=== PATIENT | male | born 1960 | race Caucasian/White ===

== ENCOUNTER 2018-06-19 19:44 | Emergency (ER) | payer BC ==
[~2018-06-19 19:44] MED LIST: ISOVUE-370 76%-LOCM 1 ML ONE
[2018-06-19 20:07] LABS: Bilirubin Negative (Negative); Blood, Urine Moderate (Negative); Clarity CLEAR (Clear); Glucose, Urine (Dipstick) Negative (Negative); Leukocyte Negative (Negative); Nitrite Negative (Negative); Protein, Urine (Dipstick) Negative (Neg-Trace); Urobilinogen 0.2 mg/dL (0.2-1.0)
[2018-06-19 20:10] LABS: Bacteria/HPF None Seen HPF (None Seen); Hyaline Casts/LPF 0-3 HYALINE CAST LPF (0-3 Hyaline); RBC/HPF 21-50 HPF (0-3); Squamous Epithelial None Seen HPF (0-3); WBC/HPF 0-3 HPF (0-3)
[2018-06-19 20:12] LABS: #Basophils 0.1 thou/uL (0.0-0.2); #Eosinphils 0.2 thou/uL (0.0-0.7); #Lymphocytes 1.9 thou/uL (1.20-3.40); #Monocytes 0.6 thou/uL (0.11-0.59); #Neutrophils 3.9 thou/uL (1.40-6.50); %Basophils 1.4 % (0.0-1.0); %Eosinophils 3.2 % (0.0-10.0); %Lymphocytes 28.5 % (21.0-51.0); %Monocytes 8.4 % (0.0-10.0); %Neutrophils 58.5 % (42.0-75.0); Hemoglobin 13.8 g/dL (14.0-18.0); Mean Corpuscular HGB CONC 34.7 g/dL (32.0-36.0); Mean Corpuscular Hemoglobin 31.4 pg (27.0-31.0); Mean Corpuscular Volume 90.6 fL (78.0-98.0); Mean Platelet Volume 6.6 fL (7.4-10.4); Platelet Count 255 thou/uL (130-400); Red Blood Cell (RBC) Count 4.39 mill/uL (4.70-6.10); White Blood Cell (WBC) Count 6.7 thou/uL (4.8-10.8)
[2018-06-19] MEDS ORDERED: Ketorolac Tromethamine 30 MG/ML VIAL ONE (20:28)
[2018-06-19] MEDS ORDERED: Ondansetron PF 4 MG/2 ML Vial ONE (20:28)
[2018-06-19 20:36] LABS: ALT (SGPT) 18 U/L (8-55); AST (SGOT) 15 U/L (5-34); Albumin 4.1 g/dL (3.5-5.0); Alkaline Phosphatase 60 U/L (40-150); Anion Gap 12 mmol/L (10-20); BUN (Urea Nitrogen) 16 mg/dL (8.4-25.7); Bilirubin, Total 0.7 mg/dL (0.2-1.2); Calc. Creatinine Clearance 0 mL/min (70-130); Calcium 9.4 mg/dL (7.8-10.44); Carbon Dioxide 25 mmol/L (22-29); Chloride 106 mmol/L (98-107); Estimated GFR-MDRD 62; Globulin 2.7 g/dL (2.4-3.5); Glucose 112 mg/dL (70-105); Protein, Total 6.8 g/dL (6.0-8.3); Sodium 139 mmol/L (136-145)
--- NOTE | 2018-06-19 22:53 | CT ---
CONTRAST ENHANCED CT IMAGES OF THE ABDOMEN AND PELVIS: History: 58-year-old with history of right sided flank pain. Technique: Contrast enhanced CT images of the abdomen and pelvis obtained. FINDINGS: The lung bases are unremarkable. No evidence of free intraperitoneal air is seen. The liver and spleen are unremarkable. The pancreas is unremarkable. There is a 1.2 cm gallstone in t he gallbladder lumen. Adrenal glands unremarkable. The left kidney contains no evidence of masses or lesion. No evidence of left sided hydronephrosis is seen. Moderate right sided hydroureteronephrosis is seen. There is a 2 mm distal right ureteral calculus at the right ureterovesicular junction resulting in surrounding fat stranding in the right kidney. No dilated loops of bowel seen. The colon demonstrates no significant abnormalities. IMPRESSION: 1. Cholelithiasis. 2. Nephrolithiasis with obstructing distal right ureteral calculus and proximal right sided hydrouret eronephrosis. POS: ALY
== END 2018-06-19 22:12 | disposition home or self-care (01) ==
LOC: ERS 19:44
DX: N13.2 Hydronephrosis with renal and ureteral calculous obstruction (principal); E78.5 Hyperlipidemia, unspecified; I25.2 Old myocardial infarction; Z79.891 Long term (current) use of opiate analgesic; Z79.899 Other long term (current) drug therapy
CPT/HCPCS: 36415; 74177; 80053; 81003; 81015; 83690; 85025; 96361; 96374; 96375; J1885; J2405; Q9966

== ENCOUNTER 2018-11-15 14:00 | Outpatient (CLI) | payer BC ==
--- NOTE | 2018-11-15 14:39 | ULT ---
EXAM: Left lower extremity venous ultrasound HISTORY: Left lower extremity pain and edema COMPARISON: None TECHNIQUE: Multiplanar grayscale and color Doppler images were obtained in a left lower extremity abhi ous ultrasound. Spectral analysis of the Doppler waveforms were performed. FINDINGS: The common femoral vein, profunda femoral vein, superficial femoral vein, and popliteal vei n are normal in appearance without visible thrombus. These vessels demonstrate normal compression, flow, and augmentation. The posterior tibial vein and greater saphenous vein are patent without evidence of thrombus. IMPRESSION: No evidence of DVT.
== END 2018-11-15 14:01 | disposition home or self-care (01) ==
LOC: BICULT 14:00
PROVIDERS: ATTEND Family Medicine
DX: M79.89 Other specified soft tissue disorders (principal)

== ENCOUNTER 2019-04-18 10:09 | Observation (INO) | payer BC, SELFPAY ==
[2019-04-18 10:58] LABS: #Eosinphils 0.2 thou/uL (0.0-0.7); #Lymphocytes 1.4 thou/uL (1.20-3.40); #Monocytes 0.7 thou/uL (0.11-0.59); #Neutrophils 5.6 thou/uL (1.40-6.50); %Basophils 0.4 % (0.0-1.0); %Lymphocytes 17.6 % (21.0-51.0); %Neutrophils 71.1 % (42.0-75.0); Hemoglobin 14.6 g/dL (14.0-18.0); Mean Corpuscular HGB CONC 33.8 g/dL (32.0-36.0); Mean Corpuscular Hemoglobin 30.7 pg (27.0-31.0); Mean Platelet Volume 6.9 fL (7.4-10.4); Platelet Count 267 thou/uL (130-400); RBC Distribution Width 11.9 % (11.5-14.5); Red Blood Cell (RBC) Count 4.74 mill/uL (4.70-6.10); White Blood Cell (WBC) Count 7.9 thou/uL (4.8-10.8)
[2019-04-18 11:05] LABS: ALT (SGPT) 20 U/L (8-55); AST (SGOT) 12 U/L (5-34); Albumin 4.3 g/dL (3.5-5.0); Alkaline Phosphatase 52 U/L (40-110); Anion Gap 13 mmol/L (10-20); BUN (Urea Nitrogen) 19 mg/dL (8.4-25.7); Bilirubin, Total 1.3 mg/dL (0.2-1.2); CK (CPK) 611 U/L (30-200); Calc. Creatinine Clearance 0 mL/min (70-130); Calcium 9.3 mg/dL (7.8-10.44); Carbon Dioxide 26 mmol/L (22-29); Chloride 107 mmol/L (98-107); Estimated GFR-MDRD 49; Globulin 2.8 g/dL (2.4-3.5); Glucose 134 mg/dL (70-105); Potassium 4.1 mmol/L (3.5-5.1); Protein, Total 7.1 g/dL (6.0-8.3); Sodium 142 mmol/L (136-145)
--- NOTE | 2019-04-18 11:28 | RAD ---
PORTABLE CHEST 1 VIEW: Date: 04/18/2019 Time: 1106 hours HISTORY: Chest pain, palpitations, dizziness. FINDINGS: Comparison made with exam of 10/08/2012. The heart size is normal. The lungs are expanded without lobar consolidation, pneumothoraces, or pleu ral effusions. IMPRESSION: No radiographic evidence of acute cardiopulmonary process. POS: TPC
[2019-04-18] MEDS ORDERED: Enoxaparin Sodium 60 MG/0.6 ML SYRINGE ONE (12:21)
[2019-04-18 13:13] LABS: PTT 27.1 SEC (22.9-36.1)
[2019-04-18 14:33] LABS: Troponin I Less than 0.010 ng/mL (< 0.028)
[2019-04-18] MEDS ORDERED: Ondansetron ODT 4 MG TAB PO PRN (14:34)
[2019-04-18] MEDS ORDERED: Acetaminophen 500 MG TAB PO PRN (14:34)
[2019-04-18] MEDS ORDERED: Ondansetron PF 4 MG/2 ML Vial IVP PRN (14:34)
[2019-04-18 14:50] VITALS: BMI 31.8
[2019-04-18] MEDS: Sodium Chloride 0.9% 1,000 ML IV SCH (15:41)
[2019-04-18 18:18] LABS: Troponin I 0.021 ng/mL (< 0.028)
--- NOTE | 2019-04-18 18:36 | CON ---
DATE OF CONSULTATION: HISTORY OF PRESENT ILLNESS: Pelon Abraham is a 58-year-old with a history of coronary artery disease, who presented with increasing palpitations. The patient was seen initially in 2013 with a myocardial infarction. The patient underwent a cardiac catheterization and he was found to have a 20% LAD lesion with diffuse distal disease. The left circumflex artery, and had a 60% proximal and 70% mid stenosis. There was diffuse disease in the left circumflex. The right coronary had a 40% stenosis. The patient presents with increasing palpitations. He denies having any chest discomfort. He did feel mildly lightheaded. PAST MEDICAL HISTORY: 1. CAD. 2. Hypertension. 3. Dyslipidemia. PAST SURGICAL HISTORY: None. SOCIAL HISTORY: Former smoker. FAMILY HISTORY: Positive family history of heart disease. ALLERGIES: PENICILLIN. REVIEW OF SYSTEMS: Ten-point system otherwise unremarkable. PHYSICAL EXAMINATION: GENERAL: Well-developed gentleman, in no acute distress. VITAL SIGNS: Blood pressure 105/64. NECK: Showed no jugular venous distention. LUNGS: Clear to auscultation. HEART: Irregular rate and rhythm with a normal S1 and S2. No murmurs. ABDOMEN: Nondistended. EXTREMITIES: Showed no edema. LABORATORY DATA: Sodium 142, potassium 4.1, chloride 107, bicarbonate 26, BUN 19, creatinine 1.47, glucose was 134. Troponin less than 0.01. His hemoglobin 7.9, hematocrit 14.6, hematocrit 43.1, his platelets are 267. INR was 1.0. EKG revealed atrial fibrillation with controlled ventricular response. IMPRESSION: 1. New onset atrial fibrillation. 2. History of myocardial infarction. 3. Diffuse three-vessel coronary artery disease. 4. Hypertension. 5. Dyslipidemia. This gentleman presents with new onset atrial fibrillation. From a cardiac standpoint, he is very symptomatic. We would recommend electrical cardioversion. We will proceed with SHIRA cardioversion. At this time, would discontinue his lisinopril and hold his Norvasc. We will switch to a baby aspirin and start Eliquis. We will continue Coreg. Job ID: [id number] [facility]
--- NOTE | 2019-04-18 19:55 | HP ---
PRIMARY CARE PROVIDER: Dr. Darren Dykes. CHIEF COMPLAINT: Lightheadedness, palpitations, and fatigue. HISTORY OF PRESENT ILLNESS: This is a 58-year-old male, who presented to [facility] Emergency Department complaining of general fatigue, palpitations, dizziness, and nausea in the last 24 to 48 hours. The patient states he has noticed his blood pressure being low, at which point his primary care provider decreased his outpatient blood pressure regimen in attempts to ameliorate the situation. The patient states his dizziness had improved with decreasing the amount of blood pressure medication he was taking; however, has noticed general fatigue and low energy level. The patient states the symptoms have been progressive over the last several weeks after losing his job approximately 1 month prior. The patient states he has noticed some palpitations intermittently over the last 24 to 48 hours, becoming progressive, prompting him to seek medical attention. The patient states recent cold symptoms, taking [id number] Zicam for relief. The patient denied any other new medications and states the only adjustment was decreasing his blood pressure medication. The patient denied any travel history, trauma, injury, or family members with similar symptoms. The patient states he has been fairly sedentary since the loss of his job 4 weeks prior with some increased weight gain. The patient denied any appetite changes, hematemesis, melena, or dysuria. The patient denied any pamela chest pain, arm discomfort, or jaw pain. In the emergency room, the patient underwent general evaluation with telemetry monitoring showing atrial fibrillation with slow rate. The patient was also noted with hypotension with initial blood pressure of 76/52. The patient received intravenous normal saline x1 liter as well as subcutaneous Lovenox 1 mg/kg x1. PAST MEDICAL HISTORY: 1. Status post myocardial infarction, on chronic Plavix. 2. Hyperlipidemia. 3. Hypertension with subsequent hypotension. PAST SURGICAL HISTORY: Status post cardiac catheterization showing diffuse 3-vessel coronary artery disease. CURRENT MEDICATIONS: 1. Lipitor 80 mg p.o. at bedtime. 2. Lisinopril 20 mg p.o. b.i.d. 3. Plavix 75 mg p.o. daily. 4. Carvedilol 6.25 mg p.o. daily. 5. Amlodipine 10 mg p.o. daily. ALLERGIES: TO PENICILLIN. FAMILY HISTORY: Positive for hypertension and coronary artery disease. SOCIAL HISTORY: Currently, unemployed. No alcohol, tobacco, or illicit drug use. Remote tobacco use. Functional of all activities of daily living. REVIEW OF SYSTEMS: CONSTITUTIONAL: Negative for weight loss or gain, ability to conduct usual activities. SKIN: Negative for rash, itching. EYES: Negative for double vision, pain. ENT/MOUTH: Negative for nose bleeding, neck stiffness, pain, tenderness. CARDIOVASCULAR: Negative for palpitations, dyspnea on exertion, orthopnea. RESPIRATORY: Negative for shortness of breath, wheezing, cough, hemoptysis, fever or night sweats. GASTROINTESTINAL: Negative for poor appetite, abdominal pain, heartburn, nausea, vomiting, constipation, or diarrhea. GENITOURINARY: Negative for urgency, frequency, dysuria, nocturia. MUSCULOSKELETAL: Negative for pain, swelling. NEUROLOGIC/PSYCHIATRIC: Negative for anxiety, depression. ALLERGY/IMMUNOLOGIC: Negative for skin rash, bleeding tendency. Otherwise negative except as stated per HPI. PHYSICAL EXAMINATION: VITAL SIGNS: On admission; blood pressure 76/52, pulse 78, respiratory rate 18, temperature 97.9 degrees Fahrenheit, O2 saturation 100% on room air. GENERAL APPEARANCE: This is a 58-year-old male, alert and oriented x3, pleasant, responsive, in no acute distress. HEENT: Pupils are equal, round, reactive to light and accommodation. Extraocular muscles are intact. No scleral icterus. No conjunctival injection. Nares patent. OP is clear. Teeth in fair repair. NECK: Supple. No cervical adenopathy. No thyromegaly. No carotid bruits. No JVD appreciated. Cervical spine with full active and passive range of motion. No meningeal signs noted. CHEST: Lungs are clear to auscultation bilaterally. CARDIOVASCULAR: S1, S2 with irregular rate and rhythm. No murmur appreciated. ABDOMEN: Obese, soft, nontender, and nondistended. Bowel sounds are positive in all 4 quadrants. There is no hepatosplenomegaly. No abdominal bruits. No rebound or guarding appreciated. EXTREMITIES: Warm and dry with fair turgor. No clubbing, cyanosis, or asymmetric edema appreciated. Pulses palpable distally at the dorsalis pedis, posterior tibial, and popliteal arteries bilaterally. Capillary refill less than 2 seconds. NEUROLOGIC: Cranial nerves 2 through 12 are grossly intact. No focal or lateralizing signs appreciated. PERTINENT LABORATORY AND X-RAY FINDINGS: Sodium 142, potassium 4.1, chloride 107, CO2 of 26, BUN 19, creatinine 1.47, estimated GFR 49, glucose 134, calcium 9.3, total bilirubin 1.3. Creatine kinase 611. Troponin-I negative x1. CBC within normal limits. Portable chest x-ray dated 04/18/2019 showed no acute cardiopulmonary process. EKG dated 04/18/2019 by my interpretation shows atrial fibrillation, heart rates in the 80s. Normal R-wave progression noted in the precordial leads. Normal axis. No acute ST-T wave changes noted. ASSESSMENT AND PLAN: 1. Hypotension. Suspect iatrogenic. We will continue intravenous normal saline at 125 mL/hr. Hold all home blood pressure medications. Serial blood pressure monitoring. Check 2D transthoracic echocardiogram for ejection fraction and valvular function. 2. Atrial fibrillation with controlled ventricular response. Appears new onset; however, time course is unclear. Obtain 2D transthoracic echocardiogram. Check magnesium and TSH level. Continue Lovenox 1 mg/kg subcutaneously q.12 hours. Consult Cardiology Service for further recommendations. 3. Acute kidney injury. Suspect iatrogenic in conjunction with volume depletion. We will continue IV fluids as outlined previously. Hold lisinopril. Repeat creatinine in the a.m. 4. Coronary artery disease, chronic and stable. Continue Plavix 75 mg daily. No evidence of acute coronary syndrome. 5. Prophylaxis. SCDs while in bed. Pepcid 20 mg p.o. b.i.d. CODE STATUS: Full. Surrogate medical decision maker is the patient's spouse. Job ID: [id number]
[2019-04-18] MEDS ORDERED: Atorvastatin Calcium 40 MG TAB PO SCH (21:00)
[2019-04-18] MEDS ORDERED: Enoxaparin Sodium 120 MG/0.8 ML SYRINGE SC SCH (21:00)
[2019-04-18] MEDS: Famotidine 20 MG TAB PO SCH (22:00)
[2019-04-18] MEDS: Apixaban 5 MG TAB PO SCH (22:17)
[2019-04-19] MEDS: Sodium Chloride 0.9% 1,000 ML IV SCH ×2 (02:30→14:53)
[2019-04-19 07:28] LABS: Hemoglobin 12.5 g/dL (14.0-18.0); Mean Corpuscular HGB CONC 33.6 g/dL (32.0-36.0); Mean Corpuscular Hemoglobin 31.3 pg (27.0-31.0); Mean Platelet Volume 7.1 fL (7.4-10.4); Platelet Count 227 thou/uL (130-400); RBC Distribution Width 11.9 % (11.5-14.5); Red Blood Cell (RBC) Count 4.01 mill/uL (4.70-6.10); White Blood Cell (WBC) Count 8.7 thou/uL (4.8-10.8)
[2019-04-19 07:46] LABS: ALT (SGPT) 15 U/L (8-55); AST (SGOT) 11 U/L (5-34); Albumin 3.6 g/dL (3.5-5.0); Alkaline Phosphatase 44 U/L (40-110); Anion Gap 11 mmol/L (10-20); BUN (Urea Nitrogen) 15 mg/dL (8.4-25.7); Bilirubin, Total 0.9 mg/dL (0.2-1.2); Calc. Creatinine Clearance 116 mL/min (70-130); Calcium 8.7 mg/dL (7.8-10.44); Carbon Dioxide 26 mmol/L (22-29); Chloride 106 mmol/L (98-107); Estimated GFR-MDRD 67; Globulin 2.4 g/dL (2.4-3.5); Glucose 92 mg/dL (70-105); Magnesium 1.9 mg/dL (1.6-2.6); Potassium 4.3 mmol/L (3.5-5.1); Sodium 139 mmol/L (136-145)
[2019-04-19] MEDS ORDERED: Carvedilol 6.25 MG TAB PO SCH ×2 (08:00→15:00)
[2019-04-19 08:04] VITALS: TEMP 98
[2019-04-19] MEDS: Famotidine 20 MG TAB PO SCH (08:12)
[2019-04-19 08:19] LABS: Band 2 % (5-11); Lymphocytes 21 % (21-51); MDiff Complete? YES; Monocytes 8 % (0-10); Neutrophil 68 % (42-75); Platelet Morphology Comment Appears Adequate; RBC Morphology Normal
[2019-04-19] MEDS ORDERED: Aspirin 81 mg Enteric Coated Tablet PO SCH (09:00)
[2019-04-19] MEDS ORDERED: Clopidogrel Bisulfate 75 MG TAB PO SCH (09:00)
[2019-04-19] MEDS ORDERED: PROPOFOL 20 ML ONE (10:19)
[2019-04-19 11:37] VITALS: BP 112/66
[2019-04-19] MEDS: Apixaban 5 MG TAB PO SCH (13:29)
--- NOTE | 2019-04-19 13:49 | OP ---
DATE OF PROCEDURE: 04/19/2019 STUDY PERFORMED: Transesophageal echocardiogram. INDICATION: A 58-year-old gentleman with paroxysmal atrial fibrillation. DESCRIPTION OF PROCEDURE: The patient was taken to the PACU. The patient was sedated by Anesthesiology. A transesophageal probe was placed into the distal esophagus and stomach. Echocardiographic images were obtained. The transesophageal probe was removed. FINDINGS: 1. Normal left ventricular systolic function. 2. Left atrial enlargement. 3. Normal mitral and aortic valve. 4. Obcb-ca-[id number] mitral regurgitation. 5. Mild tricuspid regurgitation. 6. No thrombus in the left atrial or left atrial appendage. 7. Atherosclerotic debris in the descending aorta. IMPRESSION: No formed thrombus in the left atrial or left atrial appendage. Job ID: [id number]
--- NOTE | 2019-04-19 13:49 | OP ---
DATE OF PROCEDURE: 04/19/2019 STUDY PERFORMED: Electrocardioversion. INDICATION: Paroxysmal atrial fibrillation. DESCRIPTION OF PROCEDURE: The patient was taken to the PACU. The patient sedated by Anesthesiology. The patient was shocked with 200 joules of synchronized electricity on two occasions. The patient converted to normal sinus rhythm. IMPRESSION: Successful electrocardioversion. Job ID: [id number]
--- NOTE | 2019-04-19 16:36 | DIS ---
DATE OF ADMISSION: 04/18/2019 DATE OF DISCHARGE: 04/19/2019 DISCHARGE DIAGNOSES: 1. Atrial fibrillation with variable rate, status post cardioversion with return to sinus mechanism. 2. Hypotension, iatrogenic, improved. 3. Acute kidney injury, iatrogenic, resolving. 4. Coronary artery disease, chronic and stable. CONSULTATIONS: Dr. Nicolás Tovar with Cardiology Service. PERTINENT LABORATORY AND X-RAY FINDINGS: Creatinine ranged between 1.13 to 1.47. Estimated GFR ranged between 49 to 67. Magnesium level 1.9. Troponin I negative x3. TSH 1.50. CBC showed a hemoglobin ranging between 12.5 to 14.6. Stool Hemoccult dated 04/18/2019, negative x1. Portable chest x-ray dated 04/18/2019, showed no hemodynamically significant stenosis. 2D transthoracic echocardiogram dated 04/18/2019 showed ejection fraction of 50% to 55%. Moderate mitral regurgitation noted. HOSPITAL COURSE: The patient was observed on the telemetry unit after initially presenting with lightheadedness, palpitations, and fatigue. The patient was noted with atrial fibrillation with variable rate as well as associated hypotension. The patient was placed on IV fluids with overall improvement in systolic blood pressures. The patient underwent evaluation by the Cardiology Service with recommendations to proceed to electrical cardioversion for atrial fibrillation. The patient received Lovenox 1 mg/kg subcutaneously q.12 hours and underwent the electrical cardioversion on 04/19/2019 with return to sinus mechanism. The patient transitioned to Eliquis 5 mg b.i.d. The patient was also increased on carvedilol to 6.25 mg t.i.d. Overall, blood pressure trend improved with supportive management and conversion to sinus mechanism. I have examined the patient at the time of discharge and discussed followup instructions. The patient verbalized understanding and in agreement and ready for discharge on 04/19/2019. DISCHARGE MEDICATIONS: 1. Lipitor 80 mg p.o. daily. 2. Norvasc 5 mg p.o. daily. 3. Eliquis 5 mg p.o. b.i.d. 4. Enteric-coated aspirin 81 mg p.o. daily. 5. Coreg 6.25 mg p.o. t.i.d. 6. Lisinopril 5 mg p.o. daily. FOLLOWUP: The patient may follow up with his primary care provider, Dr. Darren Dykes. The patient may follow up with Dr. Nicolás Tovar on 05/05/2019. CONDITION ON DISCHARGE: Stable. ACTIVITY: Ad-jeremiah. DIET: Heart healthy. CODE STATUS: Full. DISPOSITION: To home on 04/19/2019. Job ID: [id number]
--- NOTE | 2019-04-22 14:24 | EKG ---
Test Reason : Blood Pressure : / mmHG Vent. Rate : 089 BPM Atrial Rate : 227 BPM P-R Int : 000 ms QRS Dur : 102 ms QT Int : 328 ms P-R-T Axes : 000 015 046 degrees QTc Int : 399 ms Atrial fibrillation Abnormal ECG Confirmed by JAZ TELLO DO ([id number]), editorial specialist VICTORINA FELICIANO ([id number] on 04/22/2019 2:24:04 PM Referred By: Confirmed By:JAZ TELLO DO
== END 2019-04-19 16:25 | disposition home or self-care (01) ==
LOC: ERS 10:09 → 2SW 14:33
PROVIDERS: ADMIT Family Medicine; ATTEND Emergency Medicine
PROC: B24BZZ4 Ultrasonography of Heart with Aorta, Transesophageal (ICD-10-PCS; principal; 2019-04-19)
PROC: 5A2204Z Restoration of Cardiac Rhythm, Single (ICD-10-PCS; 2019-04-19)
DX: I48.0 Paroxysmal atrial fibrillation (principal); I95.89 Other hypotension; N17.9 Acute kidney failure, unspecified; I25.10 Atherosclerotic heart disease of native coronary artery without angina pectoris; I08.1 Rheumatic disorders of both mitral and tricuspid valves; I70.0 Atherosclerosis of aorta; I25.2 Old myocardial infarction; I10 Essential (primary) hypertension; E78.5 Hyperlipidemia, unspecified; Z79.02 Long term (current) use of antithrombotics/antiplatelets; Z79.899 Other long term (current) drug therapy; Z87.891 Personal history of nicotine dependence
CPT/HCPCS: 36415; 71045; 80053; 82274; 82550; 83735; 84443; 84484; 85007; 85025; 85027; 85610; 85730; 92960; 93005; 93306; 93312; 96360; 96361; G0378; J1650; J2704

== ENCOUNTER 2019-11-01 03:24 | Emergency (ER) | payer OTHER | END 2019-11-01 03:54 | disposition home or self-care (01) | LOC: ERS 03:24 | DX: I49.9 Cardiac arrhythmia, unspecified (principal); I10 Essential (primary) hypertension; I25.2 Old myocardial infarction; E78.5 Hyperlipidemia, unspecified; Z79.899 Other long term (current) drug therapy; Z79.891 Long term (current) use of opiate analgesic | CPT/HCPCS: 93005 ==